=== PATIENT | female | born 1970 | race Caucasian/White ===

== ENCOUNTER 2017-04-21 23:50 | Emergency (ER) | payer OTHER ==
[2017-04-21 23:53] VITALS: RESP 16
[2017-04-22] MEDS ORDERED: KETOROLAC TROMETHAMINE 30 MG/ML SOL IM ONE (00:35)
[2017-04-22] MEDS ORDERED: KETOROLAC TROMETHAMINE 30 MG/ML SOL ONE (00:36)
[2017-04-22] MEDS ORDERED: LIDOCAINE 5% PATCH 1 PATCH TDM TOP ONE (00:57)
[2017-04-22 01:35] VITALS: TEMP 97
[2017-04-22 01:37] VITALS: BP 107/74; PULSE 82; O2SAT 95
== END 2017-04-22 01:23 | disposition home or self-care (01) | DRG 914 ==
LOC: ED 23:50
DX: T14.8XXA Other injury of unspecified body region, initial encounter (principal); M54.5 Low back pain; R07.89 Other chest pain; W00.9XXA Unspecified fall due to ice and snow, initial encounter; M62.830 Muscle spasm of back
CPT/HCPCS: 71101; 99283; J1885; A9270-GY